=== PATIENT | female | born 2000 | race Caucasian/White ===

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

== ENCOUNTER 2023-08-23 16:55 | Emergency (ER) | payer OTHER ==
[~2023-08-23] VITALS: Ht 152.4 cm; Wt 72.7 kg
[2023-08-23 17:18] VITALS: TEMP 98.1
[2023-08-23] MEDS ORDERED: CLEOCIN HCL300 MG PO (18:43)
[2023-08-23] MEDS ORDERED: Clindamycin 150 MG CAP PO ONE (18:45)
[2023-08-23 18:55] VITALS: BP 146/92; PULSE 81
== END 2023-08-23 18:55 | disposition home or self-care (01) ==
LOC: COL.ER 16:55
DX: L03.114 Cellulitis of left upper limb (principal)